=== PATIENT | male | born 1950 | race African-American/Black ===

== ENCOUNTER 2018-08-15 10:05 | Inpatient (IN) ==
[2018-08-15] MEDS ORDERED: ASPIRIN 325 MG TABLET PO STA (10:49)
[2018-08-15 11:23] LABS: Basophils % 0.5 % (0.0-0.8); Eosinophils % 0.2 % (0.00-10.9); Hemoglobin 13.6 GM/DL (14.0-18.0); Immature Granulocytes % 0.2 %; Immature Granulocytes Absolute 0.01 #; Lymphocytes # 1.2 10*3/uL (1.4-4.0); Lymphocytes % 20.2 % (21.2-54.2); Mean Corpuscular HGB Conc 31.6 GM/DL (32-36); Mean Corpuscular Hemoglobin 24 PG (27-34); Mean Corpuscular Volume 76.4 FL (87-102); Mean Platelet Volume 12.8 FL (9.6-12.0); Monocytes # 0.8 10*3/uL (0.11-0.8); Monocytes % 13.3 % (1.7-12.7); Neutrophils # 3.8 10*3/uL (1.4-7.4); Neutrophils % 65.6 % (38.7-73.9); Platelet Count 180 T/CUMM (130-400); Red Blood Count 5.63 MC/CUMM (3.8-5.5); Red Cell Distribution Width 18.6 % (9.3-17.3); White Blood Count 5.7 T/CUMM (4-12)
[2018-08-15 11:33] LABS: PT Patient Result 10.7 SECS; Partial Thromboplastin Time 25.9 SECS (0-40)
[2018-08-15] MEDS ORDERED: ACETAMINOPHEN 325 MG TABLET PO PRN (16:25)
[2018-08-15] MEDS ORDERED: DEXTROSE 50% 25 GM/50 ML VIAL IV PRN (16:25)
[2018-08-15] MEDS ORDERED: ONDANSETRON 4 MG/2 ML VIAL IV PRN (16:25)
[2018-08-15] MEDS ORDERED: GLUCAGON 1 MG VIAL IM PRN (16:25)
[2018-08-15 16:30] LABS: Albumin 4.1 G/DL (3.4-5.0); Bilirubin,Total 0.8 MG/DL (0.2-1.0); Osmolality,Calculated 288.4 MOS/KG (273-304); Potassium 5.3 MMOL/L (3.5-5.1)
[2018-08-15 16:33] LABS: Calcium 9.7 MG/DL (8.5-10.1)
[2018-08-15] MEDS: INSULIN LISPRO 100 UNIT/ML SUBCUT SCH ×2 (18:25→21:23)
[2018-08-15] MEDS: SODIUM CHLORIDE 0.9% 1,000 ML IV SCH (19:12)
[2018-08-15] MEDS: DOCUSATE SODIUM 100 MG CAPSULE PO SCH (21:15)
[2018-08-16] MEDS: SODIUM CHLORIDE 0.9% 1,000 ML IV SCH ×3 (03:04→21:11)
[2018-08-16 04:54] LABS: Basophils % 0.6 % (0.0-0.8); Eosinophils # 0.1 10*3/uL (0.0-0.87); Hematocrit 42.2 VOL% (42.0-52.0); Hemoglobin 13.3 GM/DL (14.0-18.0); Immature Granulocytes % 0.2 %; Immature Granulocytes Absolute 0.01 #; Lymphocytes # 1.1 10*3/uL (1.4-4.0); Lymphocytes % 21.4 % (21.2-54.2); Mean Corpuscular HGB Conc 31.5 GM/DL (32-36); Mean Corpuscular Hemoglobin 24 PG (27-34); Mean Corpuscular Volume 76.7 FL (87-102); Monocytes # 0.9 10*3/uL (0.11-0.8); Monocytes % 17.8 % (1.7-12.7); Neutrophils # 2.9 10*3/uL (1.4-7.4); Platelet Count 116 T/CUMM (130-400); Red Cell Distribution Width 17.6 % (9.3-17.3)
[2018-08-16 05:41] LABS: Band Neutrophils 2 % (0-10); Lymphocytes 26 % (20-55); Macrocytosis 1+; Platelet Estimate Decreased; Segmented Neutrophils 66 % (50-85); Target Cells Few; Total Cells Counted 100
[2018-08-16] MEDS: LEVOTHYROXINE 100 MCG TABLET PO SCH (06:00)
[2018-08-16 08:27] LABS: Calcium 8.8 MG/DL (8.5-10.1); Osmolality,Calculated 281.5 MOS/KG (273-304); Potassium 4.8 MMOL/L (3.5-5.1)
[2018-08-16] MEDS ORDERED: PANTOPRAZOLE 40 MG TABLET PO SCH (09:00)
[2018-08-16] MEDS ORDERED: LANSOPRAZOLE ODT 30 MG TABLET PEG SCH (09:00)
[2018-08-16] MEDS: FLUTICASONE 50 MCG NASAL SPRAY 16 GM BOTTLE BOTH NARES SCH (10:47)
[2018-08-16] MEDS: DOCUSATE SODIUM 100 MG CAPSULE PO SCH ×2 (10:47→21:12)
[2018-08-16] MEDS: amLODIPine 5 MG TABLET PEG SCH (10:47)
[2018-08-16] MEDS: INSULIN LISPRO 100 UNIT/ML SUBCUT SCH ×4 (11:02→21:09)
[2018-08-16] MEDS: ASPIRIN EC 81 MG TABLET PO SCH (17:13)
[2018-08-16] MEDS: PSYLLIUM POWDER 3.7 GM/PACK PO SCH (17:13)
[2018-08-17] MEDS: SODIUM CHLORIDE 0.9% 1,000 ML IV SCH ×4 (02:38→19:23)
[2018-08-17 05:43] LABS: Basophils % 0.3 % (0.0-0.8); Eosinophils # 0.1 10*3/uL (0.0-0.87); Eosinophils % 1.3 % (0.00-10.9); Hematocrit 37.8 VOL% (42.0-52.0); Hemoglobin 11.9 GM/DL (14.0-18.0); Immature Granulocytes % 0.3 %; Immature Granulocytes Absolute 0.01 #; Lymphocytes # 1.1 10*3/uL (1.4-4.0); Lymphocytes % 27.5 % (21.2-54.2); Mean Corpuscular HGB Conc 31.5 GM/DL (32-36); Mean Corpuscular Hemoglobin 24 PG (27-34); Mean Corpuscular Volume 76.2 FL (87-102); Mean Platelet Volume 12.3 FL (9.6-12.0); Monocytes # 0.6 10*3/uL (0.11-0.8); Monocytes % 15.6 % (1.7-12.7); Neutrophils # 2.1 10*3/uL (1.4-7.4); Platelet Count 170 T/CUMM (130-400); Red Blood Count 4.96 MC/CUMM (3.8-5.5); Red Cell Distribution Width 16.7 % (9.3-17.3); White Blood Count 3.9 T/CUMM (4-12)
[2018-08-17 05:58] LABS: Osmolality,Calculated 282.3 MOS/KG (273-304); Potassium 4.2 MMOL/L (3.5-5.1)
[2018-08-17] MEDS ORDERED: TRIAMCINOLONE ACETONIDE 40 MG/1 ML VIAL MISC INJ ONE (06:00)
[2018-08-17 06:11] LABS: Atypical Lymphocytes Few; Eosinophils 1 % (0-10); Hypochromasia 1+; Lymphocytes 29 % (20-55); Segmented Neutrophils 61 % (50-85); Target Cells Slight; Total Cells Counted 100
[2018-08-17 06:12] LABS: Microcytosis 1+; Platelet Estimate Adequate
[2018-08-17 06:17] LABS: Prealbumin 20.5 MG/DL (20-40)
[2018-08-17] MEDS: FLUTICASONE 50 MCG NASAL SPRAY 16 GM BOTTLE BOTH NARES SCH (08:42)
[2018-08-17] MEDS: INSULIN LISPRO 100 UNIT/ML SUBCUT SCH ×6 (08:44→22:45)
[2018-08-17] MEDS: amLODIPine 5 MG TABLET PEG SCH (08:56)
[2018-08-17] MEDS: PSYLLIUM POWDER 3.7 GM/PACK PO SCH (08:56)
[2018-08-17] MEDS: LEVOTHYROXINE 100 MCG TABLET PO SCH (08:56)
[2018-08-17] MEDS: ASPIRIN EC 81 MG TABLET PO SCH (08:57)
[2018-08-17] MEDS: DOCUSATE SODIUM 100 MG CAPSULE PO SCH ×2 (08:57→22:43)
[2018-08-17] MEDS: LANSOPRAZOLE ODT 30 MG TABLET PEG SCH ×2 (08:57→22:43)
[2018-08-17] MEDS ORDERED: cloNIDine 0.1 MG TABLET PO ONE (22:50)
[2018-08-18] MEDS: SODIUM CHLORIDE 0.9% 1,000 ML IV SCH ×4 (01:26→19:20)
[2018-08-18] MEDS: LEVOTHYROXINE 100 MCG TABLET PO SCH (05:40)
[2018-08-18] MEDS ORDERED: LIDOCAINE 100 MG/5 ML SYRINGE ONE (07:15)
[2018-08-18] MEDS ORDERED: PROPOFOL 200 MG/20 ML VIAL IV ONE (07:15)
[2018-08-18] MEDS: INSULIN LISPRO 100 UNIT/ML SUBCUT SCH ×4 (09:05→22:13)
[2018-08-18] MEDS: ASPIRIN EC 81 MG TABLET PO SCH (09:10)
[2018-08-18] MEDS: LANSOPRAZOLE ODT 30 MG TABLET PEG SCH ×2 (09:10→22:14)
[2018-08-18] MEDS: PSYLLIUM POWDER 3.7 GM/PACK PO SCH (09:10)
[2018-08-18] MEDS: DOCUSATE SODIUM 100 MG CAPSULE PO SCH ×2 (09:10→22:13)
[2018-08-18] MEDS: FLUTICASONE 50 MCG NASAL SPRAY 16 GM BOTTLE BOTH NARES SCH (09:18)
[2018-08-19] MEDS: LEVOTHYROXINE 100 MCG TABLET PO SCH (05:50)
[2018-08-19] MEDS: SODIUM CHLORIDE 0.9% 1,000 ML IV SCH ×2 (06:02→17:46)
[2018-08-19] MEDS: INSULIN LISPRO 100 UNIT/ML SUBCUT SCH ×3 (09:46→17:47)
[2018-08-19] MEDS: PSYLLIUM POWDER 3.7 GM/PACK PO SCH (10:24)
[2018-08-19] MEDS: FLUTICASONE 50 MCG NASAL SPRAY 16 GM BOTTLE BOTH NARES SCH (10:24)
[2018-08-19] MEDS: DOCUSATE SODIUM 100 MG CAPSULE PO SCH (10:24)
[2018-08-19] MEDS: ASPIRIN EC 81 MG TABLET PO SCH (10:24)
[2018-08-19] MEDS: LANSOPRAZOLE ODT 30 MG TABLET PEG SCH (10:24)
[2018-08-19 16:58] VITALS: BP 129/73
== END 2018-08-19 16:40 | disposition home health service (06) | DRG 392 ==
LOC: N.ED 10:05 → N.EDINP 10:05 → N.2W 15:21 → N.TELEN 17:38
PROVIDERS: ADMIT Internal Medicine; ATTEND Internal Medicine

== ENCOUNTER 2019-10-25 08:51 | Inpatient (IN) ==
[2019-10-25] MEDS ORDERED: ALBUTEROL 2.5 MG/3 ML NEB RESP TX STA (09:42)
[2019-10-25 10:09] LABS: Basophils % 0.4 % (0.0-0.8); Eosinophils # 0.1 10*3/uL (0.0-0.87); Eosinophils % 0.5 % (0.00-10.9); Hematocrit 34.8 VOL% (42.0-52.0); Hemoglobin 11.1 GM/DL (14.0-18.0); Immature Granulocytes % 0.7 %; Immature Granulocytes Absolute 0.07 #; Lymphocytes # 0.7 10*3/uL (1.4-4.0); Lymphocytes % 6.4 % (21.2-54.2); Mean Corpuscular HGB Conc 31.9 GM/DL (32-36); Mean Corpuscular Volume 73.6 FL (87-102); Mean Platelet Volume 10.6 FL (9.6-12.0); Monocytes % 11.8 % (1.7-12.7); Neutrophils % 80.2 % (38.7-73.9); Platelet Count 261 T/CUMM (130-400); Red Blood Count 4.73 MC/CUMM (3.8-5.5); Red Cell Distribution Width 17.4 % (9.3-17.3); White Blood Count 10.5 T/CUMM (4-12)
[2019-10-25 10:27] LABS: Alanine Aminotransferase < 9 U/L (16-61); Albumin 2.3 G/DL (3.4-5.0); Alkaline Phosphatase 75 U/L (45-117); Aspartate Amino Transferase 17 U/L (0-37); Blood Urea Nitrogen 15 MG/DL (7-18); Calcium 7.4 MG/DL (8.5-10.1); Estimated Glom Filtration Rate 77 ML/MIN; Glucose 78 MG/DL (74-106); Osmolality,Calculated 287.7 MOS/KG (273-304)
[2019-10-25] MEDS ORDERED: FUROSEMIDE 40 MG/4 ML VIAL IV STA (10:56)
[2019-10-25] MEDS ORDERED: ONDANSETRON 4 MG/2 ML VIAL IV PRN (10:57)
[2019-10-25] MEDS: ENOXAPARIN 40 MG/0.4 ML SYRINGE SUBCUT SCH (11:00)
[2019-10-25] MEDS ORDERED: PIPERACILLIN/TAZOBACTAM 3,375 MG in SODIUM CHLORIDE 0.9% 100 ML IV STA (11:13)
[2019-10-25] MEDS ORDERED: ASPIRIN CHEW 81 MG TABLET PO STA (11:14)
[2019-10-25] MEDS: ACETAMINOPHEN 325 MG TABLET PO PRN (14:30)
[2019-10-25] MEDS: POTASSIUM CHLORIDE RIDER 20 MEQ in PREMIX 1 EACH IV PRN ×2 (14:36→16:53)
[2019-10-25] MEDS: DOCUSATE SODIUM 100 MG CAPSULE PO SCH (20:58)
[2019-10-26] MEDS: methylPREDNISolone SOD SUC 40 MG/1 ML VIAL IV SCH ×3 (00:30→18:20)
[2019-10-26] MEDS: ALBUTEROL/IPRATROPIUM 3 ML NEB RESP TX SCH ×4 (01:25→20:02)
[2019-10-26 05:54] LABS: Basophils % 0.4 % (0.0-0.8); Eosinophils # 0.1 10*3/uL (0.0-0.87); Eosinophils % 1.1 % (0.00-10.9); Hematocrit 34.9 VOL% (42.0-52.0); Immature Granulocytes % 0.2 %; Immature Granulocytes Absolute 0.02 #; Lymphocytes # 0.7 10*3/uL (1.4-4.0); Lymphocytes % 7.4 % (21.2-54.2); Mean Corpuscular HGB Conc 31.5 GM/DL (32-36); Mean Corpuscular Volume 72.9 FL (87-102); Mean Platelet Volume 10.9 FL (9.6-12.0); Monocytes % 11.5 % (1.7-12.7); NRBC # 0.02 10*3/uL; Neutrophils % 79.4 % (38.7-73.9); Platelet Count 285 T/CUMM (130-400); Red Blood Count 4.79 MC/CUMM (3.8-5.5); Red Cell Distribution Width 17.3 % (9.3-17.3); White Blood Count 9.6 T/CUMM (4-12)
[2019-10-26 06:45] LABS: Albumin 2.4 G/DL (3.4-5.0); Bilirubin,Total 0.9 MG/DL (0.2-1.0); Calcium 8.1 MG/DL (8.5-10.1); Total Protein 6.7 G/DL (6.4-8.3)
[2019-10-26] MEDS: PANTOPRAZOLE 40 MG TABLET PO SCH (09:29)
[2019-10-26] MEDS: DOCUSATE SODIUM 100 MG CAPSULE PO SCH ×2 (09:29→20:34)
[2019-10-26] MEDS: ENOXAPARIN 40 MG/0.4 ML SYRINGE SUBCUT SCH (10:56)
[2019-10-26] MEDS ORDERED: MAGNESIUM HYDROXIDE SUSP 30 ML UDCUP PO PRN (12:08)
[2019-10-27] MEDS: ALBUTEROL/IPRATROPIUM 3 ML NEB RESP TX SCH ×4 (00:35→19:51)
[2019-10-27] MEDS: methylPREDNISolone SOD SUC 40 MG/1 ML VIAL IV SCH ×3 (00:47→16:12)
[2019-10-27 05:22] LABS: Basophils % 0.1 % (0.0-0.8); Hematocrit 32.4 VOL% (42.0-52.0); Hemoglobin 10.3 GM/DL (14.0-18.0); Immature Granulocytes % 0.4 %; Immature Granulocytes Absolute 0.04 #; Lymphocytes # 0.3 10*3/uL (1.4-4.0); Lymphocytes % 3.2 % (21.2-54.2); Mean Corpuscular HGB Conc 31.8 GM/DL (32-36); Mean Platelet Volume 11.3 FL (9.6-12.0); Monocytes % 2.7 % (1.7-12.7); Neutrophils % 93.6 % (38.7-73.9); Platelet Count 308 T/CUMM (130-400); Red Blood Count 4.44 MC/CUMM (3.8-5.5); Red Cell Distribution Width 16.7 % (9.3-17.3); White Blood Count 10.5 T/CUMM (4-12)
[2019-10-27 05:51] LABS: Calcium 8.2 MG/DL (8.5-10.1); Osmolality,Calculated 290.4 MOS/KG (273-304)
[2019-10-27 06:43] LABS: Band Neutrophils 1 % (0-10); Lymphocytes 3 % (20-55); Platelet Estimate Normal; Polychromasia Few; Segmented Neutrophils 95 % (50-85); Total Cells Counted 100
[2019-10-27] MEDS: PANTOPRAZOLE 40 MG TABLET PO SCH (09:26)
[2019-10-27] MEDS: DOCUSATE SODIUM 100 MG CAPSULE PO SCH ×2 (09:26→20:09)
[2019-10-27] MEDS: POTASSIUM CHLORIDE RIDER 20 MEQ in PREMIX 1 EACH IV PRN (09:26)
[2019-10-27] MEDS: ENOXAPARIN 40 MG/0.4 ML SYRINGE SUBCUT SCH (12:38)
[2019-10-27] MEDS: POTASSIUM CHLORIDE RIDER 10 MEQ in PREMIX 1 EACH IV PRN (12:54)
[2019-10-28] MEDS: methylPREDNISolone SOD SUC 40 MG/1 ML VIAL IV SCH ×3 (00:30→16:08)
[2019-10-28] MEDS: ALBUTEROL/IPRATROPIUM 3 ML NEB RESP TX SCH ×4 (01:55→19:09)
[2019-10-28] MEDS: LEVOTHYROXINE 50 MCG TABLET PEG SCH (05:54)
[2019-10-28] MEDS: POTASSIUM CHLORIDE RIDER 20 MEQ in PREMIX 1 EACH IV PRN (08:50)
[2019-10-28] MEDS: PANTOPRAZOLE 40 MG TABLET PO SCH (08:51)
[2019-10-28] MEDS: DOCUSATE SODIUM 100 MG CAPSULE PO SCH ×2 (08:51→20:36)
[2019-10-28] MEDS: ASPIRIN CHEW 81 MG TABLET PO SCH (08:51)
[2019-10-28] MEDS: FINASTERIDE 5 MG TABLET PO SCH (08:51)
[2019-10-28] MEDS: POTASSIUM CHLORIDE RIDER 10 MEQ in PREMIX 1 EACH IV PRN (10:43)
[2019-10-28] MEDS: ENOXAPARIN 40 MG/0.4 ML SYRINGE SUBCUT SCH (10:44)
[2019-10-28] MEDS: PIPERACILLIN/TAZOBACTAM 3,375 MG in SODIUM CHLORIDE 0.9% 100 ML IV SCH ×2 (14:35→21:59)
[2019-10-29] MEDS: methylPREDNISolone SOD SUC 40 MG/1 ML VIAL IV SCH ×3 (00:49→17:05)
[2019-10-29] MEDS: ALBUTEROL/IPRATROPIUM 3 ML NEB RESP TX SCH ×4 (00:54→19:59)
[2019-10-29] MEDS: PIPERACILLIN/TAZOBACTAM 3,375 MG in SODIUM CHLORIDE 0.9% 100 ML IV SCH ×3 (05:56→22:30)
[2019-10-29] MEDS: LEVOTHYROXINE 50 MCG TABLET PEG SCH (05:56)
[2019-10-29] MEDS: DOCUSATE SODIUM 100 MG CAPSULE PO SCH ×2 (08:36→20:38)
[2019-10-29] MEDS: ASPIRIN CHEW 81 MG TABLET PO SCH (08:36)
[2019-10-29] MEDS: PANTOPRAZOLE 40 MG TABLET PO SCH (08:36)
[2019-10-29] MEDS: FINASTERIDE 5 MG TABLET PO SCH (08:37)
[2019-10-29] MEDS: ENOXAPARIN 40 MG/0.4 ML SYRINGE SUBCUT SCH (10:31)
[2019-10-29 13:06] LABS: Osmolality,Calculated 286.7 MOS/KG (273-304)
[2019-10-29] MEDS: ACETAMINOPHEN 325 MG TABLET PO PRN (13:52)
[2019-10-30] MEDS: ALBUTEROL/IPRATROPIUM 3 ML NEB RESP TX SCH ×4 (00:18→19:50)
[2019-10-30] MEDS: methylPREDNISolone SOD SUC 40 MG/1 ML VIAL IV SCH ×3 (00:45→16:14)
[2019-10-30 05:42] LABS: Basophils % 0.1 % (0.0-0.8); Hematocrit 30.5 VOL% (42.0-52.0); Hemoglobin 9.8 GM/DL (14.0-18.0); Immature Granulocytes % 0.5 %; Immature Granulocytes Absolute 0.05 #; Lymphocytes # 0.3 10*3/uL (1.4-4.0); Lymphocytes % 2.6 % (21.2-54.2); Mean Corpuscular HGB Conc 32.1 GM/DL (32-36); Mean Corpuscular Volume 71.6 FL (87-102); Mean Platelet Volume 11.1 FL (9.6-12.0); Monocytes % 5.5 % (1.7-12.7); NRBC # 0.02 10*3/uL; Neutrophils % 91.3 % (38.7-73.9); Platelet Count 365 T/CUMM (130-400); Red Blood Count 4.26 MC/CUMM (3.8-5.5); Red Cell Distribution Width 16.5 % (9.3-17.3); White Blood Count 10.5 T/CUMM (4-12)
[2019-10-30 05:58] LABS: Osmolality,Calculated 286.4 MOS/KG (273-304)
[2019-10-30 06:09] LABS: Hypochromasia 2+; Lymphocytes 3 % (20-55); Segmented Neutrophils 91 % (50-85); Target Cells Slight; Total Cells Counted 100
[2019-10-30 06:10] LABS: Anisocytosis 1+; Microcytosis 1+; Ovalocytes Slight; Platelet Estimate Normal
[2019-10-30] MEDS: PIPERACILLIN/TAZOBACTAM 3,375 MG in SODIUM CHLORIDE 0.9% 100 ML IV SCH ×3 (06:29→22:24)
[2019-10-30] MEDS: LEVOTHYROXINE 50 MCG TABLET PEG SCH (06:30)
[2019-10-30] MEDS: ASPIRIN CHEW 81 MG TABLET PO SCH (09:03)
[2019-10-30] MEDS: DOCUSATE SODIUM 100 MG CAPSULE PO SCH ×2 (09:03→20:34)
[2019-10-30] MEDS: FINASTERIDE 5 MG TABLET PO SCH (09:03)
[2019-10-30 09:55] LABS: Albumin 2.1 G/DL (3.4-5.0); Bilirubin,Total 0.4 MG/DL (0.2-1.0); Calcium 7.5 MG/DL (8.5-10.1); Osmolality,Calculated 290.1 MOS/KG (273-304)
[2019-10-30] MEDS: PANTOPRAZOLE 40 MG TABLET PO SCH (10:35)
[2019-10-30] MEDS: ENOXAPARIN 40 MG/0.4 ML SYRINGE SUBCUT SCH (10:36)
[2019-10-31] MEDS: ALBUTEROL/IPRATROPIUM 3 ML NEB RESP TX SCH ×4 (00:35→19:35)
[2019-10-31] MEDS: methylPREDNISolone SOD SUC 40 MG/1 ML VIAL IV SCH ×3 (00:49→15:41)
[2019-10-31] MEDS: PIPERACILLIN/TAZOBACTAM 3,375 MG in SODIUM CHLORIDE 0.9% 100 ML IV SCH ×3 (05:40→23:01)
[2019-10-31] MEDS: LEVOTHYROXINE 50 MCG TABLET PEG SCH (05:40)
[2019-10-31] MEDS: PANTOPRAZOLE 40 MG TABLET PO SCH (08:59)
[2019-10-31] MEDS: DOCUSATE SODIUM 100 MG CAPSULE PO SCH ×2 (08:59→20:47)
[2019-10-31] MEDS: ASPIRIN CHEW 81 MG TABLET PO SCH (08:59)
[2019-10-31] MEDS: FINASTERIDE 5 MG TABLET PO SCH (08:59)
[2019-10-31 10:40] LABS: Albumin 2.2 G/DL (3.4-5.0); Bilirubin,Total 0.4 MG/DL (0.2-1.0); Calcium 8.1 MG/DL (8.5-10.1); Total Protein 5.7 G/DL (6.4-8.3)
[2019-10-31] MEDS: ENOXAPARIN 40 MG/0.4 ML SYRINGE SUBCUT SCH (10:42)
[2019-11-01] MEDS: methylPREDNISolone SOD SUC 40 MG/1 ML VIAL IV SCH ×3 (00:35→16:51)
[2019-11-01] MEDS: ALBUTEROL/IPRATROPIUM 3 ML NEB RESP TX SCH ×4 (00:40→21:05)
[2019-11-01] MEDS: LEVOTHYROXINE 50 MCG TABLET PEG SCH (05:44)
[2019-11-01] MEDS: PIPERACILLIN/TAZOBACTAM 3,375 MG in SODIUM CHLORIDE 0.9% 100 ML IV SCH ×3 (05:47→22:14)
[2019-11-01] MEDS: FINASTERIDE 5 MG TABLET PO SCH (10:06)
[2019-11-01] MEDS: DOCUSATE SODIUM 100 MG CAPSULE PO SCH ×2 (10:06→21:08)
[2019-11-01] MEDS: ASPIRIN CHEW 81 MG TABLET PO SCH (10:06)
[2019-11-01] MEDS: PANTOPRAZOLE 40 MG TABLET PO SCH (10:06)
[2019-11-02] MEDS: ALBUTEROL/IPRATROPIUM 3 ML NEB RESP TX SCH ×4 (00:08→19:21)
[2019-11-02] MEDS: methylPREDNISolone SOD SUC 40 MG/1 ML VIAL IV SCH ×3 (00:25→17:39)
[2019-11-02 05:11] LABS: Basophils % 0.1 % (0.0-0.8); Hematocrit 34.1 VOL% (42.0-52.0); Hemoglobin 10.8 GM/DL (14.0-18.0); Immature Granulocytes % 0.6 %; Lymphocytes # 0.3 10*3/uL (1.4-4.0); Lymphocytes % 1.6 % (21.2-54.2); Mean Corpuscular HGB Conc 31.7 GM/DL (32-36); Mean Corpuscular Volume 72.7 FL (87-102); Mean Platelet Volume 11.1 FL (9.6-12.0); Neutrophils % 94.7 % (38.7-73.9); Platelet Count 436 T/CUMM (130-400); Red Blood Count 4.69 MC/CUMM (3.8-5.5); Red Cell Distribution Width 17.4 % (9.3-17.3); White Blood Count 17.9 T/CUMM (4-12)
[2019-11-02 05:33] LABS: Albumin 2.3 G/DL (3.4-5.0); Bilirubin,Total 0.4 MG/DL (0.2-1.0); Calcium 8.2 MG/DL (8.5-10.1); Total Protein 5.6 G/DL (6.4-8.3)
[2019-11-02] MEDS: PIPERACILLIN/TAZOBACTAM 3,375 MG in SODIUM CHLORIDE 0.9% 100 ML IV SCH ×3 (06:00→21:00)
[2019-11-02] MEDS: LEVOTHYROXINE 50 MCG TABLET PEG SCH (06:00)
[2019-11-02 06:01] LABS: Lymphocytes 3 % (20-55); Platelet Estimate Increased; Segmented Neutrophils 97 % (50-85); Total Cells Counted 100
[2019-11-02] MEDS ORDERED: TRIAMCINOLONE ACETONIDE 40 MG/1 ML VIAL MISC INJ ONE (07:00)
[2019-11-02] MEDS: LACTATED RINGERS 1,000 ML IV SCH (08:05)
[2019-11-02] MEDS ORDERED: PHENYLEPHRINE 1 MG/10 ML SYRINGE IV ONE (08:22)
[2019-11-02] MEDS ORDERED: LIDOCAINE 2% 5 ML VIAL ONE (08:22)
[2019-11-02] MEDS ORDERED: propofoL 200 MG/20 ML VIAL IV ONE (08:22)
[2019-11-02] MEDS ORDERED: ACETAMINOPHEN 325 MG/10.15 ML UDCUP PO ONE (08:29)
[2019-11-02] MEDS ORDERED: diphenhydrAMINE 25 MG/10 ML UDCUP PO ONE (08:31)
[2019-11-02] MEDS: FINASTERIDE 5 MG TABLET PO SCH (10:24)
[2019-11-02] MEDS: DOCUSATE SODIUM 100 MG CAPSULE PO SCH ×2 (10:24→20:57)
[2019-11-02] MEDS: ASPIRIN CHEW 81 MG TABLET PO SCH (10:24)
[2019-11-02] MEDS: PANTOPRAZOLE 40 MG TABLET PO SCH (10:24)
[2019-11-02] MEDS ORDERED: PEMBROLIZUMAB 200 MG in SODIUM CHLORIDE 0.9% 50 ML IV ONE (10:30)
[2019-11-02] MEDS ORDERED: FLUCONAZOLE INJ 100 MG in IV BAG 1 EACH IV SCH (22:30)
[2019-11-03] MEDS: ALBUTEROL/IPRATROPIUM 3 ML NEB RESP TX SCH ×3 (00:08→14:01)
[2019-11-03 05:11] LABS: Basophils % 0.1 % (0.0-0.8); Hematocrit 34.2 VOL% (42.0-52.0); Immature Granulocytes % 0.6 %; Immature Granulocytes Absolute 0.09 #; Lymphocytes # 0.3 10*3/uL (1.4-4.0); Lymphocytes % 2.1 % (21.2-54.2); Mean Corpuscular HGB Conc 32.2 GM/DL (32-36); Mean Corpuscular Volume 71.7 FL (87-102); Mean Platelet Volume 10.4 FL (9.6-12.0); Monocytes % 5.4 % (1.7-12.7); Neutrophils % 91.8 % (38.7-73.9); Platelet Count 414 T/CUMM (130-400); Red Blood Count 4.77 MC/CUMM (3.8-5.5); Red Cell Distribution Width 17.5 % (9.3-17.3); White Blood Count 15.9 T/CUMM (4-12)
[2019-11-03 05:35] LABS: Calcium 7.8 MG/DL (8.5-10.1); Osmolality,Calculated 291.5 MOS/KG (273-304)
[2019-11-03 05:54] LABS: Hypochromasia 1+; Platelet Estimate Adequate
[2019-11-03] MEDS ORDERED: methylPREDNISolone SOD SUC 40 MG/1 ML VIAL IV SCH (06:00)
[2019-11-03] MEDS: LEVOTHYROXINE 50 MCG TABLET PEG SCH (06:20)
[2019-11-03] MEDS: LACTATED RINGERS 1,000 ML IV SCH (08:19)
[2019-11-03] MEDS: FINASTERIDE 5 MG TABLET PO SCH (09:32)
[2019-11-03] MEDS: PANTOPRAZOLE 40 MG TABLET PO SCH (09:32)
[2019-11-03] MEDS: DOCUSATE SODIUM 100 MG CAPSULE PO SCH (09:32)
[2019-11-03] MEDS: ASPIRIN CHEW 81 MG TABLET PO SCH (09:35)
[2019-11-03] MEDS: ACETAMINOPHEN 325 MG TABLET PO PRN (11:43)
[2019-11-03 16:49] VITALS: BP 134/68
== END 2019-11-03 17:58 | disposition home health service (06) | DRG 177 ==
LOC: N.ED 08:51 → N.EDINP 10:56 → N.4E 11:57
PROVIDERS: ADMIT Internal Medicine; ATTEND Internal Medicine

== ENCOUNTER 2019-11-11 15:11 | Inpatient (IN) ==
[2019-11-11] MEDS ORDERED: METOPROLOL TARTRATE 5 MG/5 ML VIAL IV STA (18:04)
[2019-11-11] MEDS ORDERED: MEROPENEM 2,000 MG in SODIUM CHLORIDE 0.9% 100 ML IV ONE (20:33)
[2019-11-11] MEDS ORDERED: ENOXAPARIN 100 MG/ML SYRINGE SUBCUT ONE (20:33)
[2019-11-11 21:07] LABS: Basophils % 0.4 % (0.0-0.8); Eosinophils # 0.1 10*3/uL (0.0-0.87); Eosinophils % 1.6 % (0.00-10.9); Hematocrit 35.5 VOL% (42.0-52.0); Hemoglobin 11.3 GM/DL (14.0-18.0); Immature Granulocytes % 0.3 %; Immature Granulocytes Absolute 0.03 #; Lymphocytes % 10.8 % (21.2-54.2); Mean Corpuscular HGB Conc 31.8 GM/DL (32-36); Mean Corpuscular Volume 72.2 FL (87-102); Mean Platelet Volume 10.2 FL (9.6-12.0); Monocytes % 9.5 % (1.7-12.7); Neutrophils % 77.4 % (38.7-73.9); Platelet Count 238 T/CUMM (130-400); Red Blood Count 4.92 MC/CUMM (3.8-5.5); Red Cell Distribution Width 18.5 % (9.3-17.3)
[2019-11-11 21:17] LABS: PT Patient Result 11.1 SECS (9.6-12.2)
[2019-11-11 21:24] LABS: Albumin 2.4 G/DL (3.4-5.0); Bilirubin,Total 0.5 MG/DL (0.2-1.0); Calcium 8.1 MG/DL (8.5-10.1); Osmolality,Calculated 285.1 MOS/KG (273-304); Total Protein 6.4 G/DL (6.4-8.3)
[2019-11-11 21:25] LABS: Troponin I 0.058 NG/ML (0.00-0.045)
[2019-11-11] MEDS ORDERED: FUROSEMIDE 40 MG/4 ML VIAL IV STA (21:41)
[2019-11-11] MEDS ORDERED: ONDANSETRON 4 MG/2 ML VIAL IV PRN (21:58)
[2019-11-11 23:25] LABS: Apearance,Urine CLOUDY (Clear); Bilirubin,Urine Negative (Negative); Blood, Urine Negative (Negative); Glucose,Urine (UA) Negative (Negative); Hyaline Casts,Urine 1 /LPF (0-3); Ketones,Urine 5 mg/dL (Negative); Mucus,Urine Occasional /LPF (Occasional); Nitrite,Urine Negative (Negative); Protein,Urine 100 MG/DL; RBC,Urine 5 /HPF (0-4); Squamous Epithelial Cell,Urine Occasional /HPF (0-10); Urine Color Yellow (Yellow); Urine Specific Gravity 1.047 (1.001-1.035); WBC,Urine 2 /HPF (0-6)
[2019-11-12] MEDS: FLUCONAZOLE 100 MG TABLET PEG SCH ×2 (00:33→09:02)
[2019-11-12] MEDS: fentaNYL 100 MCG/2 ML VIAL IV PRN ×2 (00:33→02:37)
[2019-11-12] MEDS: ALBUTEROL/IPRATROPIUM 3 ML NEB RESP TX SCH ×4 (00:43→20:19)
[2019-11-12] MEDS: MEROPENEM 500 MG in SODIUM CHLORIDE 0.9% 100 ML IV SCH ×4 (03:23→21:05)
[2019-11-12] MEDS: LEVOTHYROXINE 25 MCG TABLET PEG SCH (05:52)
[2019-11-12] MEDS ORDERED: INFLUENZA VIRUS VACCINE 0.5 ML SYRINGE IM ONE (09:00)
[2019-11-12] MEDS ORDERED: PANTOPRAZOLE 40 MG VIAL IV SCH (09:00)
[2019-11-12] MEDS ORDERED: amLODIPine 5 MG TABLET PEG SCH (09:00)
[2019-11-12] MEDS: APIXABAN 5 MG TABLET PEG SCH ×2 (09:01→20:31)
[2019-11-12] MEDS: FUROSEMIDE 40 MG/4 ML VIAL IV SCH ×2 (09:01→15:18)
[2019-11-12] MEDS: traMADol 50 MG TABLET PEG SCH ×3 (09:02→20:31)
[2019-11-12] MEDS: PANTOPRAZOLE 40 MG TABLET PO SCH (09:02)
[2019-11-12] MEDS: BACLOFEN 10 MG TABLET PEG SCH ×3 (09:02→20:31)
[2019-11-12] MEDS: DOCUSATE SODIUM 100 MG CAPSULE PO SCH ×2 (09:02→20:31)
[2019-11-12] MEDS: FLUTICASONE 50 MCG NASAL SPRAY 16 GM BOTTLE BOTH NARES SCH (09:13)
[2019-11-12 10:55] LABS: Troponin I 0.116 NG/ML (0.00-0.045)
[2019-11-12] MEDS: carvediloL 3.125 MG TABLET PO SCH (20:31)
[2019-11-13] MEDS: ALBUTEROL/IPRATROPIUM 3 ML NEB RESP TX SCH ×4 (02:16→20:38)
[2019-11-13] MEDS: MEROPENEM 500 MG in SODIUM CHLORIDE 0.9% 100 ML IV SCH ×4 (03:37→20:59)
[2019-11-13] MEDS: fentaNYL 100 MCG/2 ML VIAL IV PRN ×2 (04:00→20:57)
[2019-11-13] MEDS: LEVOTHYROXINE 25 MCG TABLET PEG SCH (06:04)
[2019-11-13 06:33] LABS: Basophils % 0.4 % (0.0-0.8); Eosinophils # 0.2 10*3/uL (0.0-0.87); Eosinophils % 2.2 % (0.00-10.9); Hematocrit 36.6 VOL% (42.0-52.0); Hemoglobin 11.6 GM/DL (14.0-18.0); Immature Granulocytes % 0.3 %; Immature Granulocytes Absolute 0.02 #; Lymphocytes # 0.5 10*3/uL (1.4-4.0); Lymphocytes % 7.3 % (21.2-54.2); Mean Corpuscular HGB Conc 31.7 GM/DL (32-36); Mean Corpuscular Volume 73.1 FL (87-102); Monocytes % 7.9 % (1.7-12.7); Neutrophils % 81.9 % (38.7-73.9); Platelet Count 232 T/CUMM (130-400); Red Blood Count 5.01 MC/CUMM (3.8-5.5); Red Cell Distribution Width 18.4 % (9.3-17.3); White Blood Count 7.4 T/CUMM (4-12)
[2019-11-13 06:55] LABS: Calcium 8.6 MG/DL (8.5-10.1); Osmolality,Calculated 280.5 MOS/KG (273-304)
[2019-11-13] MEDS: APIXABAN 5 MG TABLET PEG SCH ×2 (08:57→20:58)
[2019-11-13] MEDS: traMADol 50 MG TABLET PEG SCH ×3 (08:57→20:59)
[2019-11-13] MEDS: PANTOPRAZOLE 40 MG TABLET PO SCH (08:57)
[2019-11-13] MEDS: LOSARTAN 25 MG TABLET PO SCH (08:57)
[2019-11-13] MEDS: FLUCONAZOLE 100 MG TABLET PEG SCH (08:57)
[2019-11-13] MEDS: carvediloL 3.125 MG TABLET PO SCH ×2 (08:58→20:59)
[2019-11-13] MEDS: DOCUSATE SODIUM 100 MG CAPSULE PO SCH ×2 (08:58→20:59)
[2019-11-13] MEDS: FUROSEMIDE 40 MG/4 ML VIAL IV SCH ×2 (08:58→17:08)
[2019-11-13] MEDS: BACLOFEN 10 MG TABLET PEG SCH ×3 (08:58→20:58)
[2019-11-13] MEDS: FLUTICASONE 50 MCG NASAL SPRAY 16 GM BOTTLE BOTH NARES SCH (10:00)
[2019-11-14] MEDS: ALBUTEROL/IPRATROPIUM 3 ML NEB RESP TX SCH ×4 (01:22→19:58)
[2019-11-14] MEDS: MEROPENEM 500 MG in SODIUM CHLORIDE 0.9% 100 ML IV SCH ×4 (05:20→21:40)
[2019-11-14] MEDS: LEVOTHYROXINE 25 MCG TABLET PEG SCH (05:32)
[2019-11-14] MEDS: FUROSEMIDE 40 MG/4 ML VIAL IV SCH (09:00)
[2019-11-14] MEDS: DOCUSATE SODIUM 100 MG CAPSULE PO SCH ×2 (09:01→21:42)
[2019-11-14] MEDS: PANTOPRAZOLE 40 MG TABLET PO SCH (09:01)
[2019-11-14] MEDS: APIXABAN 5 MG TABLET PEG SCH ×2 (09:05→21:42)
[2019-11-14] MEDS: LOSARTAN 25 MG TABLET PO SCH (09:05)
[2019-11-14] MEDS: BACLOFEN 10 MG TABLET PEG SCH ×3 (09:05→21:41)
[2019-11-14] MEDS: FLUCONAZOLE 100 MG TABLET PEG SCH (09:05)
[2019-11-14] MEDS: carvediloL 3.125 MG TABLET PO SCH ×2 (09:05→21:42)
[2019-11-14] MEDS: FLUTICASONE 50 MCG NASAL SPRAY 16 GM BOTTLE BOTH NARES SCH (09:06)
[2019-11-14] MEDS: traMADol 50 MG TABLET PEG SCH ×3 (09:06→21:41)
[2019-11-14] MEDS: GABAPENTIN 100 MG CAPSULE PO SCH ×3 (10:26→21:44)
[2019-11-14 12:11] LABS: Calcium 8.7 MG/DL (8.5-10.1); Osmolality,Calculated 282.4 MOS/KG (273-304)
[2019-11-14] MEDS: FUROSEMIDE 40 MG TABLET PO SCH (15:40)
[2019-11-14] MEDS: fentaNYL 100 MCG/2 ML VIAL IV PRN (21:40)
[2019-11-14] MEDS ORDERED: POTASSIUM CHLORIDE 20 MEQ/15 ML UDCUP PEG ONE (21:45)
[2019-11-15] MEDS: fentaNYL 100 MCG/2 ML VIAL IV PRN (00:23)
[2019-11-15] MEDS: ALBUTEROL/IPRATROPIUM 3 ML NEB RESP TX SCH ×4 (01:05→20:47)
[2019-11-15] MEDS: MEROPENEM 500 MG in SODIUM CHLORIDE 0.9% 100 ML IV SCH ×4 (03:10→21:07)
[2019-11-15] MEDS: LEVOTHYROXINE 25 MCG TABLET PEG SCH (05:37)
[2019-11-15 06:56] LABS: Calcium 8.8 MG/DL (8.5-10.1); Osmolality,Calculated 286.4 MOS/KG (273-304)
[2019-11-15 07:51] LABS: Basophils % 0.2 % (0.0-0.8); Eosinophils # 0.1 10*3/uL (0.0-0.87); Eosinophils % 0.9 % (0.00-10.9); Hematocrit 36.8 VOL% (42.0-52.0); Hemoglobin 11.6 GM/DL (14.0-18.0); Immature Granulocytes % 0.5 %; Immature Granulocytes Absolute 0.07 #; Lymphocytes % 7.8 % (21.2-54.2); Mean Corpuscular HGB Conc 31.5 GM/DL (32-36); Mean Corpuscular Volume 72.9 FL (87-102); Monocytes % 6.7 % (1.7-12.7); Neutrophils % 83.9 % (38.7-73.9); Platelet Count 200 T/CUMM (130-400); Red Blood Count 5.05 MC/CUMM (3.8-5.5); Red Cell Distribution Width 17.8 % (9.3-17.3); White Blood Count 13.1 T/CUMM (4-12)
[2019-11-15 08:09] LABS: Hypochromasia 1+; Platelet Estimate Adequate
[2019-11-15] MEDS: FLUTICASONE 50 MCG NASAL SPRAY 16 GM BOTTLE BOTH NARES SCH (10:33)
[2019-11-15] MEDS: APIXABAN 5 MG TABLET PEG SCH ×2 (10:34→20:56)
[2019-11-15] MEDS: DOCUSATE SODIUM 100 MG CAPSULE PO SCH ×2 (10:34→20:56)
[2019-11-15] MEDS: FUROSEMIDE 40 MG TABLET PO SCH ×2 (10:34→17:36)
[2019-11-15] MEDS: traMADol 50 MG TABLET PEG SCH ×3 (10:35→21:00)
[2019-11-15] MEDS: FLUCONAZOLE 100 MG TABLET PEG SCH (10:35)
[2019-11-15] MEDS: BACLOFEN 10 MG TABLET PEG SCH ×3 (10:35→20:56)
[2019-11-15] MEDS: PANTOPRAZOLE 40 MG TABLET PO SCH (10:35)
[2019-11-15] MEDS: GABAPENTIN 100 MG CAPSULE PO SCH ×3 (10:35→20:56)
[2019-11-15] MEDS: LOSARTAN 25 MG TABLET PO SCH (10:35)
[2019-11-15] MEDS: carvediloL 3.125 MG TABLET PO SCH ×2 (10:36→20:56)
[2019-11-16] MEDS: ALBUTEROL/IPRATROPIUM 3 ML NEB RESP TX SCH ×4 (00:53→20:01)
[2019-11-16] MEDS: SODIUM CHLORIDE 0.9% 1,000 ML IV SCH ×2 (03:46→18:50)
[2019-11-16] MEDS: MEROPENEM 500 MG in SODIUM CHLORIDE 0.9% 100 ML IV SCH ×4 (03:52→21:27)
[2019-11-16] MEDS: LEVOTHYROXINE 25 MCG TABLET PEG SCH (06:05)
[2019-11-16 06:51] LABS: Basophils % 0.3 % (0.0-0.8); Eosinophils # 0.5 10*3/uL (0.0-0.87); Eosinophils % 6.3 % (0.00-10.9); Hematocrit 31.6 VOL% (42.0-52.0); Immature Granulocytes % 0.3 %; Immature Granulocytes Absolute 0.02 #; Lymphocytes # 0.8 10*3/uL (1.4-4.0); Lymphocytes % 9.9 % (21.2-54.2); Mean Corpuscular HGB Conc 31.6 GM/DL (32-36); Mean Corpuscular Volume 72.3 FL (87-102); Mean Platelet Volume 11.8 FL (9.6-12.0); Monocytes % 6.9 % (1.7-12.7); Neutrophils % 76.3 % (38.7-73.9); Platelet Count 192 T/CUMM (130-400); Red Blood Count 4.37 MC/CUMM (3.8-5.5); Red Cell Distribution Width 17.2 % (9.3-17.3); White Blood Count 7.6 T/CUMM (4-12)
[2019-11-16] MEDS ORDERED: POTASSIUM CHLORIDE 20 MEQ/15 ML UDCUP PEG ONE (07:00)
[2019-11-16 07:13] LABS: Albumin 1.8 G/DL (3.4-5.0); Bilirubin,Total 0.7 MG/DL (0.2-1.0); Calcium 8.6 MG/DL (8.5-10.1); Osmolality,Calculated 290.1 MOS/KG (273-304); Total Protein 5.9 G/DL (6.4-8.3)
[2019-11-16] MEDS ORDERED: PHENYLEPHRINE 1 MG/10 ML SYRINGE IV ONE (10:00)
[2019-11-16] MEDS ORDERED: LIDOCAINE 100 MG/5 ML SYRINGE ONE (10:00)
[2019-11-16] MEDS ORDERED: PROPOFOL 200 MG/20 ML VIAL IV ONE (10:00)
[2019-11-16] MEDS: BACLOFEN 10 MG TABLET PEG SCH ×3 (10:47→21:29)
[2019-11-16] MEDS: APIXABAN 5 MG TABLET PEG SCH ×2 (10:47→21:29)
[2019-11-16] MEDS: FUROSEMIDE 40 MG TABLET PO SCH ×2 (10:47→15:19)
[2019-11-16] MEDS: PANTOPRAZOLE 40 MG TABLET PO SCH (10:47)
[2019-11-16] MEDS: FLUCONAZOLE 100 MG TABLET PEG SCH (10:48)
[2019-11-16] MEDS: LOSARTAN 25 MG TABLET PO SCH (10:48)
[2019-11-16] MEDS: traMADol 50 MG TABLET PEG SCH ×3 (10:48→21:30)
[2019-11-16] MEDS: carvediloL 3.125 MG TABLET PO SCH ×2 (10:48→21:29)
[2019-11-16] MEDS: DOCUSATE SODIUM 100 MG CAPSULE PO SCH ×2 (10:48→21:30)
[2019-11-16] MEDS: GABAPENTIN 100 MG CAPSULE PO SCH ×3 (10:48→21:29)
[2019-11-16] MEDS: FLUTICASONE 50 MCG NASAL SPRAY 16 GM BOTTLE BOTH NARES SCH (10:49)
[2019-11-16] MEDS: MAGNESIUM HYDROXIDE SUSP 30 ML UDCUP PEG PRN (21:29)
[2019-11-16] MEDS: ALBUMIN 25% 25 GM in PREMIX 1 EACH IV SCH (23:48)
[2019-11-17] MEDS: ALBUTEROL/IPRATROPIUM 3 ML NEB RESP TX SCH ×5 (01:23→19:17)
[2019-11-17] MEDS: MEROPENEM 500 MG in SODIUM CHLORIDE 0.9% 100 ML IV SCH ×4 (04:05→22:30)
[2019-11-17] MEDS: ALBUMIN 25% 25 GM in PREMIX 1 EACH IV SCH ×2 (06:00→16:08)
[2019-11-17] MEDS: LEVOTHYROXINE 25 MCG TABLET PEG SCH (06:00)
[2019-11-17 06:20] LABS: Albumin 1.9 G/DL (3.4-5.0); Bilirubin,Total 0.6 MG/DL (0.2-1.0); Calcium 8.7 MG/DL (8.5-10.1); Total Protein 6.2 G/DL (6.4-8.3)
[2019-11-17] MEDS ORDERED: LIDOCAINE 1%/EPI INJ 20 ML VIAL ONE (06:28)
[2019-11-17] MEDS: SODIUM CHLORIDE 0.9% 1,000 ML IV SCH ×2 (08:29→22:31)
[2019-11-17] MEDS: carvediloL 3.125 MG TABLET PO SCH ×2 (08:30→21:42)
[2019-11-17] MEDS: FUROSEMIDE 40 MG TABLET PO SCH ×2 (08:30→16:09)
[2019-11-17] MEDS: DOCUSATE SODIUM 100 MG CAPSULE PO SCH ×2 (08:30→21:42)
[2019-11-17] MEDS: BACLOFEN 10 MG TABLET PEG SCH ×3 (08:31→21:42)
[2019-11-17] MEDS: APIXABAN 5 MG TABLET PEG SCH ×2 (08:31→21:41)
[2019-11-17] MEDS: GABAPENTIN 100 MG CAPSULE PO SCH ×3 (08:31→21:42)
[2019-11-17] MEDS: FLUTICASONE 50 MCG NASAL SPRAY 16 GM BOTTLE BOTH NARES SCH (08:31)
[2019-11-17] MEDS: traMADol 50 MG TABLET PEG SCH ×3 (08:32→21:41)
[2019-11-17] MEDS ORDERED: LACTATED RINGERS 1,000 ML IV SCH (09:00)
[2019-11-17] MEDS ORDERED: MUPIROCIN 2% OINT 22 GM TUBE TOP ONE (10:25)
[2019-11-17] MEDS ORDERED: LIDOCAINE 2% 5 ML VIAL ONE (10:39)
[2019-11-17] MEDS ORDERED: SEVOFLURANE 1 UNIT/15 MINUTE INH ONE (10:39)
[2019-11-17] MEDS ORDERED: PROPOFOL 200 MG/20 ML VIAL IV ONE (10:39)
[2019-11-17] MEDS ORDERED: SUCCINYLCHOLINE 200 MG/10 ML VIAL ONE (10:39)
[2019-11-17] MEDS ORDERED: fentaNYL 100 MCG/2 ML VIAL ONE (10:39)
[2019-11-17] MEDS ORDERED: ETOMIDATE 40 MG/20 ML VIAL IV ONE (10:39)
[2019-11-17] MEDS: LOSARTAN 25 MG TABLET PO SCH (16:08)
[2019-11-17] MEDS: FLUCONAZOLE 100 MG TABLET PEG SCH (16:08)
[2019-11-17] MEDS: PANTOPRAZOLE 40 MG TABLET PO SCH (16:08)
[2019-11-18] MEDS: ALBUMIN 25% 25 GM in PREMIX 1 EACH IV SCH ×4 (00:03→23:00)
[2019-11-18] MEDS: ALBUTEROL/IPRATROPIUM 3 ML NEB RESP TX SCH ×4 (00:11→20:11)
[2019-11-18] MEDS: MEROPENEM 500 MG in SODIUM CHLORIDE 0.9% 100 ML IV SCH ×4 (05:43→22:07)
[2019-11-18] MEDS: LEVOTHYROXINE 25 MCG TABLET PEG SCH (05:44)
[2019-11-18 05:52] LABS: Albumin 2.8 G/DL (3.4-5.0); Osmolality,Calculated 281.4 MOS/KG (273-304); Total Protein 6.5 G/DL (6.4-8.3)
[2019-11-18] MEDS: APIXABAN 5 MG TABLET PEG SCH ×2 (08:53→20:08)
[2019-11-18] MEDS: PANTOPRAZOLE 40 MG TABLET PO SCH (08:53)
[2019-11-18] MEDS: BACLOFEN 10 MG TABLET PEG SCH ×3 (08:54→20:10)
[2019-11-18] MEDS: FUROSEMIDE 40 MG TABLET PO SCH ×2 (08:54→17:22)
[2019-11-18] MEDS: DOCUSATE SODIUM 100 MG CAPSULE PO SCH ×2 (08:54→20:09)
[2019-11-18] MEDS: GABAPENTIN 100 MG CAPSULE PO SCH ×3 (08:54→20:09)
[2019-11-18] MEDS: traMADol 50 MG TABLET PEG SCH ×3 (09:00→20:08)
[2019-11-18] MEDS: LOSARTAN 25 MG TABLET PO SCH (09:01)
[2019-11-18] MEDS: FLUCONAZOLE 100 MG TABLET PEG SCH (09:01)
[2019-11-18] MEDS: carvediloL 3.125 MG TABLET PO SCH ×2 (09:22→20:08)
[2019-11-18] MEDS: FLUTICASONE 50 MCG NASAL SPRAY 16 GM BOTTLE BOTH NARES SCH (10:10)
[2019-11-18] MEDS: SODIUM CHLORIDE 0.9% 1,000 ML IV SCH (10:10)
[2019-11-19] MEDS: SODIUM CHLORIDE 0.9% 1,000 ML IV SCH ×3 (00:19→12:38)
[2019-11-19] MEDS: ALBUTEROL/IPRATROPIUM 3 ML NEB RESP TX SCH ×4 (01:02→21:05)
[2019-11-19] MEDS: MEROPENEM 500 MG in SODIUM CHLORIDE 0.9% 100 ML IV SCH ×3 (03:52→20:54)
[2019-11-19 05:48] LABS: Albumin 3.3 G/DL (3.4-5.0); Calcium 8.6 MG/DL (8.5-10.1); Total Protein 6.3 G/DL (6.4-8.3)
[2019-11-19] MEDS: LEVOTHYROXINE 25 MCG TABLET PEG SCH (05:59)
[2019-11-19] MEDS: ALBUMIN 25% 25 GM in PREMIX 1 EACH IV SCH ×3 (06:00→23:13)
[2019-11-19] MEDS: GABAPENTIN 100 MG CAPSULE PO SCH ×3 (09:51→20:54)
[2019-11-19] MEDS: FLUCONAZOLE 100 MG TABLET PEG SCH (09:51)
[2019-11-19] MEDS: FUROSEMIDE 40 MG TABLET PO SCH ×3 (09:52→17:47)
[2019-11-19] MEDS: LOSARTAN 25 MG TABLET PO SCH (09:52)
[2019-11-19] MEDS: carvediloL 3.125 MG TABLET PO SCH ×2 (09:52→20:54)
[2019-11-19] MEDS: APIXABAN 5 MG TABLET PEG SCH ×2 (09:52→20:54)
[2019-11-19] MEDS: PANTOPRAZOLE 40 MG TABLET PO SCH (09:52)
[2019-11-19] MEDS: BACLOFEN 10 MG TABLET PEG SCH ×3 (09:52→20:54)
[2019-11-19] MEDS: traMADol 50 MG TABLET PEG SCH ×2 (09:53→16:33)
[2019-11-19] MEDS: DOCUSATE SODIUM 100 MG/10 ML UDCUP PO SCH ×2 (09:57→20:54)
[2019-11-19] MEDS: FLUTICASONE 50 MCG NASAL SPRAY 16 GM BOTTLE BOTH NARES SCH (09:57)
[2019-11-19] MEDS: POTASSIUM CHLORIDE RIDER 10 MEQ in PREMIX 1 EACH IV PRN ×2 (10:03→13:20)
[2019-11-19] MEDS: DOCUSATE SODIUM 100 MG CAPSULE PO SCH (14:23)
[2019-11-20] MEDS: ALBUTEROL/IPRATROPIUM 3 ML NEB RESP TX SCH ×4 (01:53→19:29)
[2019-11-20] MEDS: FUROSEMIDE 40 MG TABLET PO SCH ×3 (02:41→16:41)
[2019-11-20] MEDS: MEROPENEM 500 MG in SODIUM CHLORIDE 0.9% 100 ML IV SCH ×4 (02:42→20:47)
[2019-11-20] MEDS: LEVOTHYROXINE 25 MCG TABLET PEG SCH (06:23)
[2019-11-20] MEDS: ALBUMIN 25% 25 GM in PREMIX 1 EACH IV SCH ×3 (06:24→23:19)
[2019-11-20] MEDS: SODIUM CHLORIDE 0.9% 1,000 ML IV SCH ×3 (06:56→23:29)
[2019-11-20] MEDS: FLUTICASONE 50 MCG NASAL SPRAY 16 GM BOTTLE BOTH NARES SCH (08:30)
[2019-11-20] MEDS: GABAPENTIN 100 MG CAPSULE PO SCH ×3 (08:31→20:47)
[2019-11-20] MEDS: APIXABAN 5 MG TABLET PEG SCH ×2 (08:31→20:46)
[2019-11-20] MEDS: FLUCONAZOLE 100 MG TABLET PEG SCH (08:31)
[2019-11-20] MEDS: LOSARTAN 25 MG TABLET PO SCH (08:31)
[2019-11-20] MEDS: BACLOFEN 10 MG TABLET PEG SCH ×3 (08:31→20:46)
[2019-11-20] MEDS: SPIRONOLACTONE 25 MG TABLET PO SCH (08:31)
[2019-11-20] MEDS: DOCUSATE SODIUM 100 MG/10 ML UDCUP PO SCH ×2 (08:31→20:47)
[2019-11-20] MEDS: carvediloL 3.125 MG TABLET PO SCH (08:32)
[2019-11-20] MEDS: LANSOPRAZOLE ODT 30 MG TABLET PO SCH (08:46)
[2019-11-20 10:34] LABS: Basophils % 0.5 % (0.0-0.8); Eosinophils # 0.4 10*3/uL (0.0-0.87); Hematocrit 31.1 VOL% (42.0-52.0); Hemoglobin 9.8 GM/DL (14.0-18.0); Immature Granulocytes % 0.4 %; Immature Granulocytes Absolute 0.03 #; Lymphocytes # 0.9 10*3/uL (1.4-4.0); Lymphocytes % 11.1 % (21.2-54.2); Mean Corpuscular HGB Conc 31.5 GM/DL (32-36); Mean Corpuscular Volume 71.7 FL (87-102); Mean Platelet Volume 11.3 FL (9.6-12.0); Monocytes % 11.1 % (1.7-12.7); Neutrophils % 71.9 % (38.7-73.9); Platelet Count 244 T/CUMM (130-400); Red Blood Count 4.34 MC/CUMM (3.8-5.5); Red Cell Distribution Width 16.9 % (9.3-17.3); White Blood Count 8.1 T/CUMM (4-12)
[2019-11-20] MEDS ORDERED: carvediloL 3.125 MG TABLET PO ONE (13:21)
[2019-11-20] MEDS: MAGNESIUM HYDROXIDE SUSP 30 ML UDCUP PEG PRN (16:47)
[2019-11-20] MEDS: carvediloL 6.25 MG TABLET PO SCH (20:46)
[2019-11-21] MEDS: ALBUTEROL/IPRATROPIUM 3 ML NEB RESP TX SCH ×4 (00:25→20:49)
[2019-11-21] MEDS: MEROPENEM 500 MG in SODIUM CHLORIDE 0.9% 100 ML IV SCH ×4 (01:32→21:20)
[2019-11-21] MEDS: FUROSEMIDE 40 MG TABLET PO SCH ×3 (01:32→16:34)
[2019-11-21] MEDS: ALBUMIN 25% 25 GM in PREMIX 1 EACH IV SCH ×2 (06:13→15:56)
[2019-11-21] MEDS: SODIUM CHLORIDE 0.9% 1,000 ML IV SCH ×2 (06:13→16:38)
[2019-11-21] MEDS: LEVOTHYROXINE 25 MCG TABLET PEG SCH (06:18)
[2019-11-21] MEDS: BACLOFEN 10 MG TABLET PEG SCH ×3 (08:40→21:20)
[2019-11-21] MEDS: SPIRONOLACTONE 25 MG TABLET PO SCH (08:41)
[2019-11-21] MEDS: APIXABAN 5 MG TABLET PEG SCH ×2 (08:41→21:20)
[2019-11-21] MEDS: FLUCONAZOLE 100 MG TABLET PEG SCH (08:41)
[2019-11-21] MEDS: LOSARTAN 25 MG TABLET PO SCH (08:41)
[2019-11-21] MEDS: carvediloL 6.25 MG TABLET PO SCH (08:41)
[2019-11-21] MEDS: DOCUSATE SODIUM 100 MG/10 ML UDCUP PO SCH ×2 (08:41→21:14)
[2019-11-21] MEDS: FLUTICASONE 50 MCG NASAL SPRAY 16 GM BOTTLE BOTH NARES SCH (08:42)
[2019-11-21] MEDS: GABAPENTIN 100 MG CAPSULE PO SCH ×3 (08:42→21:14)
[2019-11-21] MEDS: LANSOPRAZOLE ODT 30 MG TABLET PO SCH (08:42)
[2019-11-21] MEDS ORDERED: NITROGLYCERIN SL 0.4 MG TABLET SL ONE (09:54)
[2019-11-21] MEDS: NITROGLYCERIN SL 0.4 MG TABLET SL PRN ×2 (09:55→10:01)
[2019-11-21 10:39] LABS: Bilirubin,Total 1.1 MG/DL (0.2-1.0); Calcium 8.7 MG/DL (8.5-10.1); Osmolality,Calculated 283.3 MOS/KG (273-304); Total Protein 6.8 G/DL (6.4-8.3)
[2019-11-21] MEDS ORDERED: METOPROLOL TARTRATE 5 MG/5 ML VIAL IV ONE (11:24)
[2019-11-21] MEDS: POTASSIUM CHLORIDE RIDER 10 MEQ in PREMIX 1 EACH IV PRN ×4 (11:42→15:20)
[2019-11-21] MEDS: carvediloL 12.5 MG TABLET PO SCH (21:14)
[2019-11-22] MEDS: ALBUMIN 25% 25 GM in PREMIX 1 EACH IV SCH ×3 (00:28→15:22)
[2019-11-22] MEDS: FUROSEMIDE 40 MG TABLET PO SCH ×3 (00:29→16:56)
[2019-11-22] MEDS: MEROPENEM 500 MG in SODIUM CHLORIDE 0.9% 100 ML IV SCH ×4 (01:35→22:04)
[2019-11-22] MEDS: SODIUM CHLORIDE 0.9% 1,000 ML IV SCH ×2 (01:36→06:24)
[2019-11-22] MEDS: ALBUTEROL/IPRATROPIUM 3 ML NEB RESP TX SCH ×4 (02:20→20:23)
[2019-11-22 04:41] LABS: Basophils % 0.4 % (0.0-0.8); Eosinophils # 0.4 10*3/uL (0.0-0.87); Eosinophils % 4.5 % (0.00-10.9); Hemoglobin 10.4 GM/DL (14.0-18.0); Immature Granulocytes % 0.3 %; Immature Granulocytes Absolute 0.03 #; Lymphocytes # 1.1 10*3/uL (1.4-4.0); Lymphocytes % 12.1 % (21.2-54.2); Mean Corpuscular HGB Conc 31.5 GM/DL (32-36); Mean Platelet Volume 10.8 FL (9.6-12.0); Monocytes % 12.1 % (1.7-12.7); Neutrophils % 70.6 % (38.7-73.9); Platelet Count 336 T/CUMM (130-400); Red Blood Count 4.65 MC/CUMM (3.8-5.5); Red Cell Distribution Width 16.9 % (9.3-17.3); White Blood Count 9.4 T/CUMM (4-12)
[2019-11-22 05:11] LABS: Calcium 9.1 MG/DL (8.5-10.1); Osmolality,Calculated 288.1 MOS/KG (273-304)
[2019-11-22] MEDS: LEVOTHYROXINE 25 MCG TABLET PEG SCH (06:13)
[2019-11-22] MEDS: GABAPENTIN 100 MG CAPSULE PO SCH ×3 (09:59→21:48)
[2019-11-22] MEDS: FLUCONAZOLE 100 MG TABLET PEG SCH (10:00)
[2019-11-22] MEDS: APIXABAN 5 MG TABLET PEG SCH ×2 (10:00→21:47)
[2019-11-22] MEDS: LANSOPRAZOLE ODT 30 MG TABLET PO SCH (10:00)
[2019-11-22] MEDS: BACLOFEN 10 MG TABLET PEG SCH ×3 (10:00→21:48)
[2019-11-22] MEDS: SPIRONOLACTONE 25 MG TABLET PO SCH (10:01)
[2019-11-22] MEDS: DOCUSATE SODIUM 100 MG/10 ML UDCUP PO SCH ×2 (10:01→21:47)
[2019-11-22] MEDS: carvediloL 12.5 MG TABLET PO SCH (10:01)
[2019-11-22] MEDS: LOSARTAN 25 MG TABLET PO SCH (10:01)
[2019-11-22] MEDS: FLUTICASONE 50 MCG NASAL SPRAY 16 GM BOTTLE BOTH NARES SCH (10:02)
[2019-11-22] MEDS ORDERED: carvediloL 25 MG TABLET PO SCH (11:00)
[2019-11-22] MEDS ORDERED: carvediloL 12.5 MG TABLET PO ONE (12:00)
[2019-11-22] MEDS: carvediloL 25 MG TABLET PO SCH (21:48)
[2019-11-23] MEDS: ALBUTEROL/IPRATROPIUM 3 ML NEB RESP TX SCH ×2 (01:11→08:29)
[2019-11-23] MEDS: FUROSEMIDE 40 MG TABLET PO SCH ×2 (01:35→09:25)
[2019-11-23] MEDS: MEROPENEM 500 MG in SODIUM CHLORIDE 0.9% 100 ML IV SCH ×3 (01:43→14:10)
[2019-11-23 02:25] LABS: Basophils % 0.3 % (0.0-0.8); Eosinophils # 0.6 10*3/uL (0.0-0.87); Eosinophils % 6.5 % (0.00-10.9); Hematocrit 31.5 VOL% (42.0-52.0); Hemoglobin 9.8 GM/DL (14.0-18.0); Immature Granulocytes % 0.2 %; Immature Granulocytes Absolute 0.02 #; Lymphocytes # 1.1 10*3/uL (1.4-4.0); Lymphocytes % 12.9 % (21.2-54.2); Mean Corpuscular HGB Conc 31.1 GM/DL (32-36); Mean Corpuscular Volume 71.4 FL (87-102); Mean Platelet Volume 11.3 FL (9.6-12.0); Neutrophils % 67.1 % (38.7-73.9); Platelet Count 334 T/CUMM (130-400); Red Blood Count 4.41 MC/CUMM (3.8-5.5); Red Cell Distribution Width 17.1 % (9.3-17.3); White Blood Count 8.8 T/CUMM (4-12)
[2019-11-23 02:40] LABS: Calcium 8.6 MG/DL (8.5-10.1)
[2019-11-23] MEDS: LEVOTHYROXINE 25 MCG TABLET PEG SCH (05:47)
[2019-11-23] MEDS ORDERED: POTASSIUM CHLORIDE 20 MEQ/15 ML UDCUP PER TUBE PRN (07:37)
[2019-11-23] MEDS: APIXABAN 5 MG TABLET PEG SCH (09:25)
[2019-11-23] MEDS: LOSARTAN 25 MG TABLET PO SCH (09:25)
[2019-11-23] MEDS: SPIRONOLACTONE 25 MG TABLET PO SCH (09:25)
[2019-11-23] MEDS: GABAPENTIN 100 MG CAPSULE PO SCH ×2 (09:25→15:10)
[2019-11-23] MEDS: DOCUSATE SODIUM 100 MG/10 ML UDCUP PO SCH (09:26)
[2019-11-23] MEDS: BACLOFEN 10 MG TABLET PEG SCH ×2 (09:26→15:10)
[2019-11-23] MEDS: FLUCONAZOLE 100 MG TABLET PEG SCH (09:26)
[2019-11-23] MEDS: FLUTICASONE 50 MCG NASAL SPRAY 16 GM BOTTLE BOTH NARES SCH (09:26)
[2019-11-23] MEDS: carvediloL 25 MG TABLET PO SCH (09:26)
[2019-11-23] MEDS: LANSOPRAZOLE ODT 30 MG TABLET PO SCH (09:27)
[2019-11-23] MEDS ORDERED: ASCORBIC ACID 500 MG TABLET PO SCH (09:30)
[2019-11-23 12:31] VITALS: BP 107/68
[2019-11-23] MEDS ORDERED: INFLUENZA VIRUS VACCINE 0.5 ML SYRINGE IM ONE (14:02)
== END 2019-11-23 16:48 | DRG 987 ==
LOC: N.ED 15:11 → N.EDINP 21:56 → N.TELEN 22:34
PROVIDERS: ADMIT Internal Medicine; ATTEND Internal Medicine